=== PATIENT | male | born 1960 | race Caucasian/White ===

== ENCOUNTER 2025-03-16 06:54 | Inpatient (IN) | payer MEDICAID, OTHER ==
[~2025-03-16] VITALS: Ht 177.8 cm; Wt 79.5 kg
--- NOTE | 2025-03-16 07:10 | ED.PDOC ---
Altered Mental Status HPI Comments This is a 69 year old male ROSALIAA presenting to the ED with chief complaint of fentanyl overdose. EMS reports that the patient was found by S.O. in the field to have overdosed on fentanyl, giving the patient 12mg of Narcan. EMS relays that the patient initially refused to come to the ED, however, when S.O. threatened the patient with being detained and booked to skilled nursing, he then agreed to come to the ED to avoid that. Patient states he is only currently experiencing nausea. Patient denies any vomiting, abdominal pain, fever, dizziness, headache, or chest pain. Time Seen by MD: 07:08 Reviewed Notes: Nurses Notes, Sustainability Director Notes, Medications, Allergies Allergies: Coded Allergies: NO KNOWN ALLERGIES (Unverified , 03/16/25) Information Source: Patient, Emergency Med Personnel Mode of Arrival: EMS Severity: Moderate Timing: Hours Duration: Since onset Prehospital treatment: Other (12mg of Narcan) Quality: Decreased Alertness, Change in Behavior Recent: Medication/Drug Abuse History of: None Past Medical History PAST MEDICAL HISTORY: Denies Surgical History: Denies all surgeries Family History Family History: Reviewed,noncontributory to illness Social History Smoker: Non-Smoker Alcohol: Denies ETOH Use Drugs: Other (Fentanyl) Lives In: Unknown Constitutional: denies: chills, diaphoresis, fatigue, fever, malaise, sweats, weakness, others EENTM: denies: blurred vision, double vision, ear bleeding, ear discharge, ear drainage, ear pain, ear ringing, eye pain, eye redness, hearing loss, mouth pain, mouth swelling, nasal discharge, nose bleeding, nose congestion, nose pain, photophobia, tearing, throat pain, throat swelling, voice changes, others Respiratory: denies: cough, hemoptysis, orthopnea, SOB at rest, shortness of breath, SOB with excertion, stridor, wheezing, others Cardiovascular: denies: chest pain, dizzy spells, diaphoresis, Dyspnea on exertion, edema, irregular heart beat, left arm pain, lightheadedness, palp itations, PND, syncope, others Gastrointestinal: reports: nausea; denies: abdomen distended, abdominal pain, blood streaked bowels, constipated, diarrhea, dysphagia, difficulty swallowing, hematemesis, melena, poor appetite, poor fluid intake, rectal bleeding, rectal pain, vomiting, others Genitourinary: denies: burning, dysuria, flank pain, frequency, hematuria, incontinence, penile discharge, penile sore, pain, testicle pain, testicle swelling, urgency, others Neurological: denies: dizziness, fainting, headache, left sided numbness, left sided weakness, numbness, paresthesia, pre-existing deficit, right sided numbness, right sided weakness, seizure, speech problems, tingling, tremors, weakness, others Musculoskeletal: denies: back pain, gout, joint pain, joint swelling, muscle pain, muscle stiffness, neck pain, others Integumetry: denies: bruises, change in color, change in hair/nails, dryness, laceration, lesions, lumps, rash, wounds, others Allergic/Immunocompromised: denies: Difficulty Healing, Frequent Infections, Hives, Itching, others Hematologic/Lymphatic: denies: anemia, blood clots, easy bleeding, easy bruising, swollen glands, others Endocrine: denies: excessive hunger, excessive sweating, excessive thirst, excessive urination, flushing, intolerance to cold, intolerance to heat, unexplained weight gain, unexplained weight loss, others Psychiatric: denies: anxiety, bipolar disorder, depression, hopeless, panic disorder, schizophrenia, sleepless, suicidal, others All Other Systems: Reviewed and Negative Physical Exam General Appearance: Moderate Distress, Normal HEENT: Normal ENT Inspection, Pharynx Normal, TMs Normal Neck: Full Range of Motion, Non-Tender, Normal, Normal Inspection Respiratory: Chest Non-Tender, Lungs Clear, No Accessory Muscle Use, No Respiratory Distress, Normal Breath Sounds Cardiovascular: No Edema, No JVD, No Murmur, No Gallop, Normal Peripheral Pulses, Regular Rate/Rhythm Breast Exam: Deferred Gastrointestinal: No Organomegaly, Non Tender, No Pulsatile Mass, Normal Bowel Sounds, Soft Genitalia: Deferred Pelvic: Deferred Rectal: Deferred Extremities: No calf tenderness, Normal capillary refill, Normal inspection, Normal range of motion, Non-tender, No pedal edema Musculoskeletal : Apperance: Normal Neurologic: cd mixer II-XII nml as Tested, Disoriented, No Motor Deficits, Normal Affect, Normal Mood, No Sensory Deficits Cerebellar Function: NOT DONE Reflexes: NOT DONE Skin: Dry, Normal Color, Warm Peripheral Pulses: 3+ Radial (R), 3+ Radial (L) Lymphatic: No Adenopathy EKG EKG : Pulse Rate (adult): 97 [place]: Normal Cardiac Rhythm: NSR Block: None Hypertrophy: None ST: Normal Was a procedure done? Was a procedure done?: No Differential Diagnosis (ALOC) Differential Diagnosis: Dehydration, Encephalopathy, Drug Overdose X-Ray, Labs, Meds, VS Vital Signs Date Time Temp Pulse Resp B/P (MAP) Pulse Ox O2 Delivery O2 Flow Rate FiO2 03/16/25 07:10 97 03/16/25 07:08 98.4 99 18 168/107 98 98.4 03/16/25 06:57 97 Current Medications Medications (Trade) Dose Ordered Sig/Bill Route Start Time Stop Time Status Last Admin Sodium Chloride 1,000 ml @ 1,000 mls/hr Q1H ONCE IVB 03/16/25 07:15 03/16/25 08:14 03/16/25 07:18 Patient disoriented. Unknown from the patient what he has taken. Paramedics stated that he overdose on fentanyl. Vitals stable. Moving all extremities. Unable to get history from the patient. Establish intravenous access. Was given fluids. Narcan was given in the field. Continue to monitor. Time of 1ST Reevaluation: 08:07 Reevaluation 1ST: Unchanged Patient Education/Counseling: Diagnosis, Treatment Family Education/Counseling: No Family Present SEPSIS Sepsis Screen Physician Orders Electrocardigram (03/16/25 06:59) Complete Blood Count (03/16/25 07:09) Drug Screen (03/16/25 07:09) Blood Alcohol (03/16/25 07:09) Sodium Chloride 0.9% (03/16/25 07:15) Basic Metabolic Panel (03/16/25 07:09) Vital Signs Date Time Temp Pulse Resp B/P (MAP) Pulse Ox O2 Delivery O2 Flow Rate FiO2 03/16/25 07:10 97 03/16/25 07:08 98.4 99 18 168/107 98 98.4 03/16/25 06:57 97 Medications Medications Dose Ordered Sig/Bill Route Start Time Stop Time Status Last Admin Dose Admin Sodium Chloride 1,000 ml @ 1,000 mls/hr Q1H ONCE IVB 03/16/25 07:15 03/16/25 08:14 03/16/25 07:18 Departure 1 Departure Time of Disposition: 07:28 Impression: Primary Impression: Metabolic encephalopathy Disposition: 09 ADMITTED INPATIENT Admit to: Med Surg Condition: Guarded Critical Care Note Critical Care Time?: Yes (90 min-critical care time only) Stability Stability form required: No Heart Score Heart Score: Heart Score Response (Comments) Value History Slightly Suspicious 0 EKG Normal 0 Age >65 2 Risk Factors 1 or 2 risk factors 1 Troponin N/A 0 Total 3 I personally scribed for MAT MILES MD ([email or web address]) on 03/16/25 at 07:10. Electronically submitted by Leon Stephenson ([email or web address]). MAT MILES MD Mar 16, 2025 07:10
[2025-03-16] MEDS: SODIUM CHLORIDE 0.9% 1,000 ML IVB ONE (07:18)
[2025-03-16 07:31] VITALS: TEMP 97.8
[2025-03-16 08:21] LABS: Hematocrit 50.6 % (41.0-53.0); Hemoglobin 17.5 g/dL (13.5-17.5); Mean Corpuscular Hemoglobin 29.3 pg (28.0-32.0); Mean Corpuscular Volume 84.5 fL (80.0-100.0); Nucleated Red Blood Cells % 0.3 %
[2025-03-16 08:31] LABS: Potassium 3.9 mmol/L (3.5-5.1); Sodium 142 mmol/L (136-145)
[2025-03-16 08:32] LABS: Anion Gap 7 (5-15); Calcium 9.6 mg/dL (8.7-10.4); Carbon Dioxide 27 mmol/L (20-31)
[2025-03-16 08:33] LABS: Chloride 108 mmol/L (98-107)
[2025-03-16 08:37] LABS: BUN/Creatinine Ratio 16.4 (10.0-20.0); Blood Urea Nitrogen 19 mg/dL (9-23)
[2025-03-16 08:38] LABS: Glucose 148 mg/dL (74-106)
[2025-03-16 08:58] LABS: Amphetamine Screen, Urine Pos (NEGATIVE); Barbiturate Scree,Urine Neg (NEGATIVE); Benzodiazephine Screen, Urine Neg (NEGATIVE); Cannabinoid Screen, Urine Pos (NEGATIVE); Cocaine Screen, Urine Neg (NEGATIVE); Opiate Scree,Urine Neg (NEGATIVE); Phencyclidine Screen, Urine Neg (NEGATIVE)
[2025-03-16] MEDS ORDERED: DOCUSATE SOD 100 MG CAP PO PRN (10:00)
[2025-03-16] MEDS ORDERED: NITROGLYCERIN 0.4 MG SL TAB SL PRN (10:00)
[2025-03-16] MEDS ORDERED: ONDANSETRON HCL 4 MG/2 ML VIAL IV PRN (10:00)
[2025-03-16] MEDS ORDERED: MORPHINE SULFATE INJ 2 MG/ml SYRG IV PRN (10:00)
--- NOTE | 2025-03-16 10:11 | DVH ---
CHEST RADIOGRAPH Indication: SOB Technique: Frontal and lateral view of the chest was obtained Comparison: None FINDINGS: Lines and Tubes: None Lungs: Clear Pleura: No effusion. No pneumothorax. Cardiomediastinal contours: Unremarkable Bones: Unremarkable IMPRESSION: No evidence of acute disease.
[2025-03-16] MEDS: SODIUM CHLORIDE 0.9% 1,000 ML IV SCH (10:40)
[2025-03-16 10:42] LABS: INR 1.09 (0.9-1.15); Prothrombin Time 11.5 sec (9.3-11.8)
[2025-03-16 10:45] VITALS: BP 152/90; PULSE 78; RESP 18; O2SAT 92
--- NOTE | 2025-03-16 11:04 | DVHHP2 ---
History of Present Illness Reason for Visit: overdose History of Present Illness 64 yr old male with no known past medical history and surgical history significant for prior knee and ankle surgery presents with limited history, reporting shortness of breath and pain with breathing. He is a poor historian and provides minimal details. Per law enforcement ([place]), patient was found in the field with suspected overdose. EMS administered a total of 12 mg of in tranasal/IV naloxone with improvement in responsiveness. Initially, patient refused transport to the ER but agreed after being informed by police that refusal would result in incarceration. On exam, patient is noted to be tripod- positioned, leaning forward, with obvious facial trauma including ecchymosis to the left side of the face and posterior scalp tenderness. He reports severe pain when taking a deep breath in, pt was not able to recall of events of what happened. He admits to using drugs earlier today but denies alcohol use; serum ethanol level in ED was negative. while In ED: CBC notable for leukocytosis (WBC 13.9), BMP unremarkable. CXR pending was not ordered before admission Will continue to monitor for respiratory compromise and evaluate for underlying trauma, rib fracture, or pulmonary injury. will admit for further workup. Past Medical History See HPI above Past Surgical History See HPI above Family History Reviewed, non-contributory to the management of this case. Past Social History Patient does drink does fentanyl meth marijuana Review of Systems Constitutional: No: Fever, Chills, Sweats, Weakness, Malaise, Other Eyes: No: Pain, Vision change, Conjunctivae inflammation, Eyelid inflammation, Other, Redness ENT: No: Ear pain, Ear discharge, Nose pain, Nose discharge, Nose congestion, Mouth pain, Mouth swelling, Throat pain, Throat swelling, Other Respiratory: Shortness of breath, Hemoptysis; No: Cough, Dry, SOB with exce rtion, Wheezing, Pleuritic Pain, Sputum, Wheezing, Other Cardiovascular: No: Chest Pain, Palpitations, Orthopnea, Paroxysmal Noc. Dyspnea, Edema, Lt Headedness, Other Gastrointestinal: No: Nausea, Vomiting, Abdominal Pain, Diarrhea, Constipation, Melena, Hematochezia, Other Genitourinary: No Dysuria, No Frequency, No Incontinence, No Hematuria, No Retention, No Other Musculoskeletal: No: other, neck pain, shoulder pain, arm pain, back pain, hand pain, leg pain, foot pain Skin: No: Rash, Lesions, Jaundice, Bruising, Other Neurological: No: Weakness, Numbness, Incoordination, Change in speech, Confusion, Seizures, Other Allergies: Coded Allergies: NO KNOWN ALLERGIES (Unverified , 03/16/25) Medications Current Medications Medications Dose Ordered Sig/Bill Route Start Time Stop Time Status Last Admin Dose Admin Sodium Chloride 1,000 ml @ 100 mls/hr Q10H IV 03/16/25 10:00 Ondansetron HCl 4 mg Q4HP PRN IV 03/16/25 10:00 Docusate Sodium 100 mg BIDPRN PRN PO 03/16/25 10:00 Morphine Sulfate 2 mg Q4HPRN PRN IV 03/16/25 10:00 Nitroglycerin 0.4 mg Q5MINP PRN SL 03/16/25 10:00 Exam Vital Signs Vital Signs Date Time Temp Pulse Resp B/P (MAP) Pulse Ox O2 Delivery O2 Flow Rate FiO2 03/16/25 07:31 86 18 95 Room Air 03/16/25 07:31 97.8 145/97 (113) 97.8 General Appearance: Alert, Cooperative, No acute distress HEENT: Atraumatic, PERRLA, EOMI, Mucous membr. moist/pink, Other (left facial with some brusing seen) Respiratory: Normal air movement, Other (Diminished lung sounds throughout) Cardiovascular: Regular rate, Normal S1, Normal S2, No murmurs Abdominal: Normal bowel sounds, Soft, No tenderness, No hepatospenomegaly, No masses Extremities: No clubbing, No cyanosis, No edema, Normal pulses, No tenderness/swelling Skin: No rashes, No breakdown Neuro: Normal gait, Normal speech, Strength at 5/5 X4 ext, Normal tone, Sensation intact Psych/Mental Status: Mental status NL, Mood NL Labs/Xrays I reviewed labs, imaging CT scan abdomen pelvis, EKG and all diagnostic studies on this patient from ED records and the medical chart Labs Test 03/16/25 08:10 03/16/25 07:16 Range/Units White Blood Count 13.9 H 4.4-10.8 10^3/uL Red Blood Count 5.99 H 4.5-5.90 10^6/uL Hemoglobin 17.5 13.5-17.5 g/dL Hematocrit 50.6 41.0-53.0 % Mean Corpuscular Volume 84.5 80.0-100.0 fL Mean Corpuscular Hemoglobin 29.3 28.0-32.0 pg Mean Corpuscular Hemoglobin Concent 34.6 32.0-36.0 g/dL Red Cell Distribution Width 13.2 11.8-14.3 % Platelet Count 197 140-450 10^3/uL Mean Platelet Volume 8.6 6.9-10.8 fL Neutrophils (%) (Auto) 86.7 H 37.0-80.0 % Lymphocytes (%) (Auto) 6.3 L 10.0-50.0 % Monocytes (%) (Auto) 6.4 0.0-12.0 % Eosinophils (%) (Auto) 0.2 0.0-7.0 % Basophils (%) (Auto) 0.4 0.0-2.0 % Neutrophils # (Auto) 12.0 H 1.6-8.6 10 ^3/uL Lymphocytes # (Auto) 0.9 0.4-5.4 10 ^3/uL Monocytes # (Auto) 0.9 0-1.3 10 ^3/uL Eosinophils # (Auto) 0 0-0.8 10 ^3/uL Basophils # (Auto) 0.1 0-0.2 10 ^3/uL Nucleated Red Blood Cells 0.3 % Sodium Level 142 136-145 mmol/L Potassium Level 3.9 3.5-5.1 mmol/L Chloride Level 108 H 98-107 mmol/L Carbon Dioxide Level 27 20-31 mmol/L Anion Gap 7 5-15 Blood Urea Nitrogen 19 9-23 mg/dL Creatinine 1.16 0.700-1.30 mg/dL Glomerular Filtration Rate Calc 70 >90 mL/min BUN/Creatinine Ratio 16.4 10.0-20.0 Serum Glucose 148 H 74-106 mg/dL Calcium Level 9.6 8.7-10.4 mg/dL Plasma/Serum Blood Alcohol < 3.0 <10 mg/dL Urine Opiates Screen Neg NEGATIVE Urine Fentanyl Screen Pos NEGATIVE Urine Barbiturates Screen Neg NEGATIVE Urine Phencyclidine Screen Neg NEGATIVE Urine Amphetamines Screen Pos NEGATIVE Urine Benzodiazepines Screen Neg NEGATIVE Urine Cocaine Screen Neg NEGATIVE Urine Cannabinoids Screen Pos NEGATIVE SEPSIS Sepsis Screen Date sepsis recognized/suspect: Mar 16, 2025 Time Sepsis recognized/suspect: 0705 Recent Procedure: No On Antibiotic Therapy: No Respiratory Rate >20: No Heart Rate >90: Yes Temp<36 C (96.8 F) or >38.3 C: No SBP <90 or MAP <65 mmHG: No New Acute Mental Status Change: No Is the patient on CPAP, BIPAP,: No Physician Orders Electrocardigram (03/16/25 06:59) Chest Two Views Routine (03/16/25 09:33) Admit (03/16/25 09:48) Allergies (03/16/25 09:48) Code Status (03/16/25 09:48) Sodium Chloride 0.9% (03/16/25 10:00) Oxygen Per Hour (03/16/25 09:48) Ondansetron Hcl (Zofran) (03/16/25 10:00) Docusate Sodium Capsule (Colace Capsule) (03/16/25 10:00) Fall Risk Precautions In Place QSHIFT (03/16/25 09:48) Complete Blood Count (03/17/25 04:00) Comprehensive Metabolic Panel (03/17/25 04:00) Cardiac Diet-2gna,Lofat,Lochol (03/16/25 Lunch) Condition: Stable (03/16/25 09:48) BRP (03/16/25 09:48) Morphine Sulfate Injection (03/16/25 10:00) Sequential Compression Device (03/16/25 ) Nitroglycerin Sublingual (Ntrostat Subli (03/16/25 10:00) Stat Ekg For Chest Pain (03/16/25 09:48) Notify Md Of Changes From Base (03/16/25 09:48) Inspector Watch Assembly For 24 Hours (03/16/25 09:48) Emergency Dysrhythmia Protocol (03/16/25 09:48) Rhythm Strips Once Every Shift (03/16/25 09:48) Oxygen By Nasal Cannula (03/16/25 09:48) Prothrombin Time W/ Inr (03/16/25 09:48) Seizure Assessment (03/16/25 09:48) Seizure Precautions (03/16/25 ) Seizure Precautions In Place (03/16/25 09:48) Assess Sputum Production (03/16/25 09:48) Vital Signs Date Time Temp Pulse Resp B/P (MAP) Pulse Ox O2 Delivery O2 Flow Rate FiO2 03/16/25 07:31 86 18 95 Room Air 03/16/25 07:31 97.8 86 18 145/97 (113) 95 97.8 03/16/25 07:10 97 03/16/25 07:08 98.4 99 18 168/107 98 98.4 03/16/25 06:57 97 Laboratory Tests Test 03/16/25 08:10 White Blood Count 13.9 10^3/uL (4.4-10.8) H Medications Medications Dose Ordered Sig/Bill Route Start Time Stop Time Status Last Admin Dose Admin Sodium Chloride 1,000 ml @ 1,000 mls/hr Q1H ONCE IVB 03/16/25 07:15 03/16/25 08:14 DC 03/16/25 07:18 1,000 MLS/HR Assessment/Plan Assessment/Plan 64 yr old male with Suspected opioid overdose with trauma and respiratory distress. acute Respiratory distress/arrest from fentyl od pt was given narcan 12mg in field cxr ordered fu results Await official CXR read; consider CT chest if pain and hypoxia persist Incentive spirometry o2 prn to keep sats >92% monitor for resp distress can provide narcan prn acute Opioid overdose with fentyl Observation for recurrent respiratory depression given high-dose naloxone requirement Continuous pulse oximetry and telemetry monitoring PRN naloxone if recurrent hypoventilation monitor for resp arrest acute Facial trauma with ecchymosis no evidence of fracture Pain control with non-opioid regimen Neuro checks Q4H acute Leukocytosis Likely stress response to trauma/overdose Monitor trend; no antibiotics unless clinical infection develops polySubstance use disorder Social work consult for drug rehabilitation resources Counseling on overdose risks and Narcan use found to use meth cocaine and fentyl chronic problems Substance use disorder History of knee surgery History of ankle surgery FEN / PPx Fluids: Maintain hydration Electrolytes: Monitor daily Nutrition: Regular diet as tolerated DVT Prophylaxis: Sequential compression devices GI Prophylaxis: protonix Disposition Admit to tele for monitoring of respiratory status, evaluation of trauma, and overdose observation. Plan discussed with: Patient, Other (ed records ) My Orders Orders - DAVID KELLEY DNP Procedure Category Date Status Time Admit ADMIT 03/16/25 Transmitted 09:48 Allergies LIONEL 03/16/25 In Process 09:48 Code Status CODE 03/16/25 Transmitted 09:48 Sodium Chloride 0.9% PHA 03/16/25 In Process 10:00 Oxygen Per Hour RT 03/16/25 Transmitted 09:48 Ondansetron Hcl PHA 03/16/25 In Process (Zofran) 10:00 Docusate Sodium PHA 03/16/25 In Process Capsule (Colace 10:00 Fall Risk Precautions LIONEL 03/16/[address] 09:48 Complete Blood Count LAB 03/17/25 Verified 04:00 Comprehensive LAB 03/17/25 Verified Metabolic Panel 04:00 Cardiac DIET 03/16/25 Transmitted Diet-2gna,Lofat,Lochol Lunch Condition: Stable LIONEL 03/16/25 In Process 09:48 BRP LIONEL 03/16/25 In Process 09:48 Morphine Sulfate PHA 03/16/25 In Process Injection 10:00 Sequential LIONEL 03/16/25 In Process Compression Device Nitroglycerin PHA 03/16/25 In Process Sublingual (Ntrostat 10:00 Stat Ekg For Chest [facility] 03/16/25 In Process Pain 09:48 Notify Md Of Changes [facility] 03/16/25 In Process From Base 09:48 Inspector Watch Assembly For [facility] 03/16/25 In Process 24 Hours 09:48 Emergency Dysrhythmia [facility] 03/16/25 In Process Protocol 09:48 Rhythm Strips Once [facility] 03/16/25 In Process Every Shift 09:48 Oxygen By Nasal RT 03/16/25 Transmitted Cannula 09:48 Prothrombin Time W/ LAB 03/16/25 In Process INR 09:48 Seizure Assessment [facility] 03/16/25 In Process 09:48 Seizure Precautions ED NURSING 03/16/25 Transmitted Seizure Precautions [facility] 03/16/[address] 09:48 Assess Sputum [facility] 03/16/25 In Process Production 09:48 Date of Service: Mar 16, 2025 Billing Provider: DAVID KELLEY DNP Common Visit Codes: [id number] INP/OBS CARE (HIGH), [id number] CARE 30- 74 MIN (Total critical care time: Approximately 45 minutes This critical care time included obtaining a history; examining the patient; pulse oximetry; ordering and review of studies; arranging urgent treatment with development of a management plan; evaluation of patient's response to treatment; frequent reassessment; and, discussions with other providers.) DAVID KELLEY [facility] Mar 16, 2025 11:04
--- NOTE | 2025-03-16 14:13 | DVH ---
CHEST RADIOGRAPH Indication: SOB Technique: Frontal and lateral view of the chest was obtained Comparison: None FINDINGS: Lines and Tubes: None Lungs: Clear Pleura: No effusion. No pneumothorax. Cardiomediastinal contours: Unremarkable Bones: Unremarkable IMPRESSION: No evidence of acute disease. L CLEANER TUBE PAT
== END 2025-03-16 21:56 | disposition left against medical advice (07) | DRG 812 ==
LOC: EDBD 06:54 → ER 06:54 → OVERFLOW 09:48
PROVIDERS: ADMIT Nurse Practitioner Family; ATTEND Nurse Practitioner Family
DX: T40.2X1A Poisoning by other opioids, accidental (unintentional), initial encounter (principal); R09.2 Respiratory arrest; G93.41 Metabolic encephalopathy; S09.8XXA Other specified injuries of head, initial encounter; F19.10 Other psychoactive substance abuse, uncomplicated; D72.829 Elevated white blood cell count, unspecified; T40.411A Poisoning by fentanyl or fentanyl analogs, accidental (unintentional), initial encounter; R58 Hemorrhage, not elsewhere classified; X58.XXXA Exposure to other specified factors, initial encounter; Y93.89 Activity, other specified; Y92.89 Other specified places as the place of occurrence of the external cause; Y99.8 Other external cause status
CPT/HCPCS: 36415; 71046; 80048; 80307; 80320; 85025; 85610; 96360; 99291; 99292; G0378